=== PATIENT | male | born 1970 | race Caucasian/White ===

== ENCOUNTER 2016-04-24 22:12 | Emergency (ER) | payer OTHER ==
[2016-04-24] MEDS ORDERED: IPRATROPIUM/ALBUTEROL 3 ML DEYVIAL IH ONE (22:33)
[2016-04-24] MEDS ORDERED: IPRATROPIUM/ALBUTEROL 3 ML DEYVIAL ONE (22:33)
--- NOTE | 2016-04-24 22:37 | EDPHY ---
H & P Stated Complaint: SOB, fever, cough- infitrate seen on xray today Time Seen by Provider: 04/24/16 22:21 HPI/ROS: HPI The patient presents with 1 week of cough and fever which started slowly and has gotten progressively worse. His cough is nonproductive and has been moderate in severity. It is associated with a fever as high as 100.5 F. His fever has improved with ibuprofen. He also has had intermittent right-sided mid thoracic pleuritic pain. Tonight, while lying in bed he had shortness of breath and that is what prompted his visit here. 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 He denies any PE risk factors, he has not had any recent travel. He is not aware of any sick contacts at home. He has not had any rhinorrhea or sore throat. He does not have any lower extremity edema. REVIEW OF SYSTEMS Constitutional: No fever, no chills. Eyes: No discharge. ENT: No sore throat. Cardiovascular: + chest pain, no palpitations. Respiratory: No cough, no shortness of breath. Gastrointestinal: No abdominal pain, no vomiting. Genitourinary: No hematuria. Musculoskeletal: No back pain. Skin: No rashes. Neurological: No headache. PMHx: Healthy, no diabetes, no hypertension Soc Hx: Works at an ER doctor at [employer] PHYSICAL General Appearance: Alert, no distress Eyes: Pupils equal and round no pallor or injection ENT, Mouth: Mucous membranes moist Respiratory: There are no retractions, lungs are clear to auscultation Cardiovascular: Regular rate and rhythm Gastrointestinal: Abdomen is soft and non-tender, no masses, bowel sounds normal Neurological: A&O, moves all extremities Skin: Warm and dry, no rashes Musculoskeletal: Neck is supple non tender Extremities: symmetrical, full range of motion Psychiatric: Patient is oriented X 3, there is no agitation Source: Patient Exam Limitations: No limitations - Personal History Current Tetanus Diphtheria and Acellular Pertussis (TDAP): Yes - Medical/Surgical History Hx Asthma: No Hx Chronic Respiratory Disease: No Hx Diabetes: No Hx Cardiac Disease: No Hx Renal Disease: No Hx Cirrhosis: No Hx Alcoholism: No Hx HIV/AIDS: No Hx Splenectomy or Spleen Trauma: No - Social History Smoking Status: Never smoked Constitutional: Initial Vital Signs Temperature (C) 36.7 C 04/24/16 22:15 Heart Rate 104 H 04/24/16 22:15 Respiratory Rate 16 04/24/16 22:15 Blood Pressure 135/96 H 04/24/16 22:15 O2 Sat (%) 94 04/24/16 22:15 O2 Delivery Mode Room Air Allergies/Adverse Reactions: No Known Allergies Allergy (Unverified 04/24/16 22:15) Home Medications: Medication Instructions Recorded levOFLOXACIN [Levofloxacin] 500 mg PO DAILY #10 tablet 04/24/16 Medical Decision Making - Diagnostics Imaging: CT scan with IV contrast of chest demonstrates dense right lower lobe infiltrate , reviewed by radiology. Differential Diagnosis: This is a healthy 45-year-old man who presents with cough, fever, shortness of breath. His symptoms have been ongoing for the last 1 week. Had an abnormal chest x-ray performed earlier today. Differential diagnosis includes pneumonia, influenza, pulmonary embolism, lung mass. In the emergency room, the patient was given a DuoNeb without much improvement in his symptoms. Labs were performed and were unremarkable. Head CT scan demonstrated infiltrate consistent with likely pneumonia. The patient has already started on Levaquin, single dose. I have advised him to continue this. If he is not improved, he should follow up with his primary care provider. No pulmonary embolism was seen on his CT scan. - Data Points Laboratory Results: Laboratory Results 04/24/16 22:40 04/24/16 22:40 04/24/16 04/24/16 04/24/16 22:40 22:40 22:40 WBC 7.90 10^3/uL 10^3/uL (3.80-9.50) RBC 4.68 10^6/uL 10^6/uL (4.40-6.38) Hgb 14.1 g/dL g/dL (13.7-17.5) POC Hgb Hct 40.3 % % (40.0-51.0) POC Hct MCV 86.1 fL fL (81.5-99.8) MCH 30.1 pg pg (27.9-34.1) MCHC 35.0 g/dL g/dL (32.4-36.7) RDW 12.7 % % (11.5-15.2) Plt Count 292 10^3/uL 10^3/uL (150-400) MPV 10.0 fL fL (8.7-11.7) Neut % (Auto) 68.4 % % (39.3-74.2) Lymph % (Auto) 14.4 % L % (15.0-45.0) [place] % (Auto) 11.3 % % (4.5-13.0) Eos % (Auto) 5.1 % % (0.6-7.6) Baso % (Auto) 0.5 % % (0.3-1.7) Nucleat RBC Rel Count 0.0 % % (0.0-0.2) Absolute Neuts (auto) 5.41 10^3/uL 10^3/uL (1.70-6.50) Absolute Lymphs (auto) 1.14 10^3/uL 10^3/uL (1.00-3.00) Absolute Monos (auto) 0.89 10^3/uL H 10^3/uL (0.30-0.80) Absolute Eos (auto) 0.40 10^3/uL 10^3/uL (0.03-0.40) Absolute Basos (auto) 0.04 10^3/uL 10^3/uL (0.02-0.10) Absolute Nucleated RBC 0.00 10^3/uL 10^3/uL (0-0.01) Immature Gran % 0.3 % % (0.0-1.1) Immature Gran # 0.02 10^3/uL 10^3/uL (0.00-0.10) POC Sodium Sodium 143 mEq/L mEq/L (134-144) POC Potassium Potassium 4.0 mEq/L mEq/L (3.5-5.2) POC Chloride Chloride 106 mEq/L mEq/L (97-110) Carbon Dioxide 26 mEq/l mEq/l (22-31) Anion Gap 11 mEq/L mEq/L (8-16) POC BUN BUN 16 mg/dL mg/dL (7-23) Creatinine 0.8 mg/dL mg/dL (0.7-1.3) POC Creatinine Estimated GFR > 60 Glucose 103 mg/dL H mg/dL (70-100) POC Glucose Calcium 9.1 mg/dL mg/dL (8.5-10.4) Total Bilirubin 0.7 mg/dL mg/dL (0.1-1.4) AST 69 IU/L H IU/L (17-59) ALT 89 IU/L H IU/L (21-72) Alkaline Phosphatase 142 IU/L H IU/L (38-126) Total Protein 6.9 g/dL g/dL (6.3-8.2) Albumin 3.7 g/dL g/dL (3.5-5.0) Influenza Typ A,B (DFA) NEGATIVE FOR FLU (NEGATIVE) 04/24/16 22:39 WBC RBC Hgb POC Hgb 13.3 gm/dL L gm/dL (14.5-17.3) Hct POC Hct 39 % L % (42.8-50.6) MCV MCH MCHC RDW Plt Count MPV Neut % (Auto) Lymph % (Auto) [place] % (Auto) Eos % (Auto) Baso % (Auto) Nucleat RBC Rel Count Absolute Neuts (auto) Absolute Lymphs (auto) Absolute Monos (auto) Absolute Eos (auto) Absolute Basos (auto) Absolute Nucleated RBC Immature Gran % Immature Gran # POC Sodium 143 mEq/L mEq/L (134-144) Sodium POC Potassium 3.7 mEq/L mEq/L (3.3-5.0) Potassium POC Chloride 104 mEq/L mEq/L (96-108) Chloride Carbon Dioxide Anion Gap POC BUN 15 mg/dL mg/dL (7-23) BUN Creatinine POC Creatinine 0.8 mg/dL mg/dL (0.8-1.5) Estimated GFR Glucose POC Glucose 104 mg/dL H mg/dL (70-100) Calcium Total Bilirubin AST ALT Alkaline Phosphatase Total Protein Albumin Influenza Typ A,B (DFA) Medications Given: Discontinued Medications Albuterol/Ipratropium (Duoneb) 3 ml IH EDNOW ONE Stop: 04/24/16 22:34 Last Admin: 04/24/16 22:49 Dose: 3 ml Point of Care Test Results: 04/24/16 22:39 POC Sodium 143 POC Potassium 3.7 POC Chloride 104 POC BUN 15 POC Creatinine 0.8 POC Glucose 104 H Departure - Departure Disposition: Home, Routine, Self-Care Clinical Impression: Pneumonia Qualifiers: Pneumonia type: due to unspecified organism Laterality: right Lung location: lower lobe of lung Qualified Code(s): J18.1 - Lobar pneumonia, unspecified organism Condition: Good Instructions: Pneumonia (ED) Referrals: Neda Doss MD [Primary Care Provider] - As per Instructions Prescriptions: levOFLOXACIN [Levofloxacin] 500 mg PO DAILY #10 tablet
[2016-04-24 22:51] LABS: % IMMATURE GRANULYOCYTES 0.3 % (0.0-1.1); ABSOLUTE IMMATURE GRANULOCYTES 0.02 10^3/uL (0.00-0.10); ADD DIFF? NO; ADD MORPH? NO; ADD SCAN? NO; ATYPICAL LYMPHOCYTE FLAG 10 (0-99); FRAGMENT RBC FLAG 0 (0-99); HEMATOCRIT 40.3 % (40.0-51.0); HEMOGLOBIN 14.1 g/dL (13.7-17.5); LEFT SHIFT FLG 0 (0-99); LIPEMIA HEMOLYSIS FLAG 90 (0-99); MEAN CELL HEMOGLOBIN 30.1 pg (27.9-34.1); MEAN CELL VOLUME 86.1 fL (81.5-99.8); PLATELET CLUMPS FLAG 0 (0-99); PLATELET COUNT 292 10^3/uL (150-400); RED BLOOD CELL COUNT 4.68 10^6/uL (4.40-6.38); RED CELL DISTRIBUTION WIDTH 12.7 % (11.5-15.2)
[2016-04-24] MEDS ORDERED: IOPAMIDOL (ISOVUE 370) 100 ML BTL IV ONE (22:54)
[2016-04-24 23:04] LABS: ALANINE AMINOTRANSFERASE 89 IU/L (21-72); ALBUMIN 3.7 g/dL (3.5-5.0); ALKALINE PHOSPHATASE 142 IU/L (38-126); ANION GAP 11 mEq/L (8-16); ASPARTATE AMINOTRANSFERASE 69 IU/L (17-59); BILIRUBIN,TOTAL 0.7 mg/dL (0.1-1.4); CALCIUM 9.1 mg/dL (8.5-10.4); CARBON DIOXIDE 26 mEq/l (22-31); CHLORIDE 106 mEq/L (97-110); CREATININE 0.8 mg/dL (0.7-1.3); GLOMERULAR FILTRATION RATE > 60; GLUCOSE 103 mg/dL (70-100); SODIUM 143 mEq/L (134-144); TOTAL PROTEIN 6.9 g/dL (6.3-8.2)
[2016-04-25 00:17] VITALS: BP 131/71; PULSE 98; RESP 18; TEMP 99.1; O2SAT 96
== END 2016-04-25 00:17 | disposition home or self-care (01) ==
DX: J18.1 Lobar pneumonia, unspecified organism (principal)
CPT/HCPCS: 82947-QW; Q9967

== ENCOUNTER → 2016-05-07 | Outpatient (CLI) | payer OTHER | LOC: FIMAGING 09:35 | PROVIDERS: ATTEND Internal Medicine Infectious Disease | DX: J16.8 Pneumonia due to other specified infectious organisms (principal); B45.0 Pulmonary cryptococcosis; M54.5 Low back pain; J18.8 Other pneumonia, unspecified organism ==

== ENCOUNTER 2016-05-11 10:37 | Inpatient (IN) | payer OTHER ==
[2016-05-11 16:10] LABS: % IMMATURE GRANULYOCYTES 0.3 % (0.0-1.1); ABSOLUTE IMMATURE GRANULOCYTES 0.02 10^3/uL (0.00-0.10); ADD DIFF? NO; ADD MORPH? NO; ADD SCAN? NO; ATYPICAL LYMPHOCYTE FLAG 0 (0-99); FRAGMENT RBC FLAG 0 (0-99); HEMATOCRIT 41.7 % (40.0-51.0); HEMOGLOBIN 14.7 g/dL (13.7-17.5); LEFT SHIFT FLG 0 (0-99); LIPEMIA HEMOLYSIS FLAG 90 (0-99); MEAN CELL HEMOGLOBIN CONCENTR. 35.3 g/dL (32.4-36.7); MEAN CELL VOLUME 82.2 fL (81.5-99.8); MEAN PLATELET VOLUME 10.5 fL (8.7-11.7); PLATELET CLUMPS FLAG 0 (0-99); PLATELET COUNT 372 10^3/uL (150-400); RED BLOOD CELL COUNT 5.07 10^6/uL (4.40-6.38); RED CELL DISTRIBUTION WIDTH 12.5 % (11.5-15.2)
[2016-05-11 16:11] LABS: ALANINE AMINOTRANSFERASE 43 IU/L (21-72); ALBUMIN 4.1 g/dL (3.5-5.0); ALKALINE PHOSPHATASE 96 IU/L (38-126); ANION GAP 13 mEq/L (8-16); ASPARTATE AMINOTRANSFERASE 28 IU/L (17-59); BILIRUBIN,TOTAL 0.6 mg/dL (0.1-1.4); CALCIUM 9.7 mg/dL (8.5-10.4); CARBON DIOXIDE 23 mEq/l (22-31); CHLORIDE 108 mEq/L (97-110); CREATININE 0.8 mg/dL (0.7-1.3); GLOMERULAR FILTRATION RATE > 60; GLUCOSE 108 mg/dL (70-100); POTASSIUM 4.1 mEq/L (3.5-5.2); SODIUM 144 mEq/L (134-144); TOTAL PROTEIN 7.6 g/dL (6.3-8.2)
[2016-05-11] MEDS ORDERED: ACETAMINOPHEN 325 MG TAB PO PRN (16:13)
[2016-05-11] MEDS ORDERED: ONDANSETRON 4 MG/2 ML VIAL IVP PRN (16:13)
[2016-05-11] MEDS ORDERED: ONDANSETRON DISINTEGRATING 4 MG TAB PO PRN (16:13)
[2016-05-11] MEDS ORDERED: BENZONATATE 100 MG CAP PO PRN (17:18)
[2016-05-11] MEDS ORDERED: ZOLPIDEM TARTRATE 5 MG TAB PO PRN (17:18)
[2016-05-11] MEDS ORDERED: NS 1,000 ML IV SCH (17:30)
--- NOTE | 2016-05-11 18:02 | PCMIDPN ---
Assessment/Plan: Cryptococcal PNA, primarily right lower lobe with high burden of disease, reviewed CT scan today, noted several areas with new cavitation. Labs reviewed , mild absolute eosinophilia not uncommon and it an indirect measure of more severe disease. --Discussed case with Dr. Mcdaniel. Will send repeat fungal cultures with BAL and biopsy. No path needed. --ordered liposomal ampho B 4mg/kg IV daily and 5FC 25mg/kg PO q6. Dose calculates to 1750mg Q6h but can only get 500mg tab so elected to dose down to 1500mg --hold fluconazole Subjective: 45 yo male immunocompetent male who was dx with cryptococcal PNA 04/29/16 and was started on fluconazole. Patient slow to improve, although does report improving O2 sats, persistent low-grade fever, severe malaise, and dyspnea on exertion despite approximately 10 days of fluconazole 400mg. Unfortunately, cultures did not get sent when he underwent bronch 04/29/16 therefore know cryptococcus based on positive antigen and full field organisms present on path. 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 Elected to admit today for repeat CT scan, bronch and biopsy and to initiate liposomal amphotericin +5FC. Objective: Vital Signs Temp Pulse Resp BP Pulse Ox 36.6 C 84 16 142/92 H 92 05/11/16 14:15 05/11/16 14:15 05/11/16 14:15 05/11/16 14:15 05/11/16 14:15 Laboratory Results 05/11/16 15:00 05/11/16 15:00 - Physical Exam General Appearance: alert, no apparent distress Respiratory: other (Appears dyspneic with minimal movement) Neuro/Psych: alert, normal mood/affect, oriented x 3 - Time Spent With Patient Time Spent with Patient: greater than 35 minutes (Care coordination with the hospitalist, pulmonary. Review of plans with patient at bedside including repeat imaging, bronchoscopy and advancement to amphotericin) Time Spent with Patient: Greater than 35 minutes spent on this patients care, greater than 50% of time spent counseling, educating, and coordinating care regarding the above mentioned plan. ICD10 Worksheet Patient Problems: Problems Problem Status Onset Cryptococcal pneumonitis Acute [place] (dyspnea on exertion) Acute Fever Acute - ICD10 Problem Qualifiers (1) Cryptococcal pneumonitis (2) Fever Qualifiers: Fever type: due to other condition Encounter type: E Qualified Code(s): R50.81 - Fever presenting with conditions classified elsewhere (3) [place] (dyspnea on exertion)
--- NOTE | 2016-05-11 18:47 | GHP ---
DATE OF ADMISSION: 05/11/2016 CHIEF COMPLAINT: Cryptococcal pneumonia. HISTORY OF PRESENT ILLNESS: The patient is a 45-year-old male without past medical history, who is presenting for treatment of cryptococcal pneumonia. Patient's symptoms originated in 04/16/2016 when he developed fevers, shortness of breath with cough. He felt very toxic for 10 days. He obtained a chest x- ray at work which showed a right lower lobe infiltrate. Thus, presented [facility] ER on 04/24/2016. CT chest at that time showed an extensive right lower lobe consolidation, nodules and mediastinal lymphadenopathy. He was started on Levaquin. Symptoms did not improve and his oxygen sats dropped to the low 80s with increased shortness of breath. He underwent bronchoscopy on 04/28 at [facility] and culture showed significant amount of cryptococcus, negative for malignancy. He was started on fluconazole 400 mg daily on 04/29/2016. He has been taking this since discharge on 04/30/2016. Symptoms have not progressed. He is still feeling very fatigued. He has dyspnea to the point where he can only walk 1 block. He is normally very active doing running, cycling and weights. He has lost 9 pounds since discharge. He also complained of left lumbar pain with radiation down his leg. This has since improved. Denies any bladder or bowel incontinence or weakness. No diarrhea, nausea or vomiting. No travel out of the country recently. REVIEW OF SYSTEMS: A complete 10-point review of systems negative except in HPI. PAST MEDICAL HISTORY: None. PAST SURGICAL HISTORY: 1. A C6-7 fixation. 2. Microdiskectomy L5-S1. 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 Lives in [place] with his , daughter and son. Social alcohol. Denies illicits or tobacco. No exposure to birds. FAMILY HISTORY: Hyperlipidemia. MEDICATIONS: Fluconazole 400 mg daily. ALLERGIES: No known drug allergies. PHYSICAL EXAM: VITAL SIGNS: Temperature 36.6, blood pressure 142/92, heart rate 84, respirations 16, 92% on room air. GENERAL: Patient is sitting up in bed, no acute distress. HEENT: PERRLA. EOMI. Mildly dry mucous membranes. CV: Regular rate and rhythm. No murmurs, gallops, or rubs. LUNGS: Clear to auscultation. ABDOMEN: Soft, nontender, nondistended. Positive bowel sounds. : No suprapubic tenderness. MUSCULOSKELETAL: No tenderness over spine. Lumbar surgical scar healed. 5/5 upper and lower extremity strength. NEURO: 2 through 12 intact. SKIN: Warm, dry, no rash or ulcerations. LABORATORY DATA: WBC 7.4, hemoglobin 14, hematocrit 41, platelets 372. Sodium 144, potassium 4.1, chloride 108, carbon dioxide 23, BUN 19, creatinine 0.8, glucose 108, total bilirubin 0.6, AST 20, ALT 43, total protein 7.6, albumin 4.1. CT chest, personally reviewed by me, showing right lower lobe infiltrates with some cavitation. Review of prior labs shows normal immunoglobulin, HIV testing. Lumbar spine film was performed with no significant bony abnormalities on 2016. ASSESSMENT AND PLAN: 1. Cryptococcal pneumonia: This was demonstrated on past bronchoscopy at [facility] and being followed by Dr. Abrams who is directly admitting patient for amphotericin +5 FC to be initiated tomorrow. Dr. Mcdaniel will consult to perform a bronchoscopy tomorrow with repeat biopsies that will guide long-term treatment. No evidence of neurologic compromise at this time. The back pain has improved. If persistent, would consider MRI. 2. Cough: p.r.n. antitussives. 3. Diet: Regular, n.p.o. after midnight. 4. DVT prophylaxis. Ambulatory. DISPOSITION: Patient warrants inpatient admission given the cryptococcal pneumonia warranting a repeat bronchoscopy and amphotericin plus 5F-C. Monitor for side effects, lab abnormalities closely. /[id number]/MODL MTDD
[2016-05-11] MEDS: guaiFENesin/CODEINE PHOS 10 ML UDCUP PO PRN (22:02)
--- NOTE | 2016-05-11 23:27 | GCON ---
PULMONARY CONSULTATION REASON FOR CONSULTATION: Cryptococcal pneumonia. 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 He became ill about a month ago with progressive cough, fatigue, malaise, and shortness of breath. He eventually had a n x-ray done which showed a right lower zone infiltrate. He was admitted to [facility] a nd had a bronchoscopy there. Findings were consistent with a cryptococcal pneumonia. However, cult ures and sensitivities were lost and/or not sent. The patient was placed on fluconazole. On the fl uconazole, over the last 10 days or so, he has not felt particularly any better. He has had persist ent fevers. He was brought back into the hospital today to arrange repeat bronchoscopy with biopsie s and lavage for culture. PAST MEDICAL HISTORY: Unremarkable. He has been very healthy. He has no previous pulmonary proble ms, no heart disease, no significant recent travel. He was taking no medications prior to this illn ess. He has had some orthopedic procedures. 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 He is a never sm oker, drinks alcohol occasionally. No other inhaled substances. No recent travel. He was in the [facility] area in 2016, but was well after that. FAMILY HISTORY: Noncontributory. ALLERGIES: None known. REVIEW OF SYSTEMS: Negative except as mentioned above. He has no chest pain. He does feel somewha t short of breath. He had no evidence of cryptococcus in his C and S with his previous hospitalizat ion. He has lost 9 pounds over the last 1 month, by his history. Appetite has been decreased. PHYSICAL EXAMINATION: GENERAL: Reveals a pleasant gentleman, in no apparent distress. VITAL SIGNS : Blood pressure is approximately 140/90, heart rate 85, respiratory rate 16. Room air saturations are 92%. He is afebrile. HEENT: Unremarkable for lymphadenopathy or thyromegaly. CHEST: The ch est is relatively clear. There may be a few nonspecific rales at the right base. There is no wheez ing, no rhonchi, no consolidation. HEART: Regular rate and rhythm without significant murmur or ga llops. ABDOMEN: Unremarkable. The rest of the examination within normal limits. LABORATORY DATA: White blood cell count is 7400, hematocrit 41. Platelets are normal. Chemistries are within normal limits. CT scan chest was reviewed. He has right lower lobe infiltrates, some of which are nodular. Overal l, according to radiology, the infiltrates are slightly better compared to April 24. There are some areas of central cavitation. ASSESSMENT: Known cryptococcal pneumonia. The patient has been started on fluconazole and perhaps feels marginally better. CT scan is marginally improved; however, he is not responding rapidly to t he treatment and Infectious Disease is requesting repeat bronchoscopy for cultures and sensitivities . Amphotericin-B is being considered. PLAN/RECOMMENDATIONS: Bronchoscopy will be arranged for tomorrow, probably in the afternoon. Lavag e and biopsies will be sent for culture. Pathology is not being requested. All of the above was discussed at length with the patient, including risks and benefits of bronchosc opy, which he is well aware of. /[id number]/MODL
[2016-05-12 05:30] LABS: ANION GAP 10 mEq/L (8-16); CALCIUM 9.3 mg/dL (8.5-10.4); CARBON DIOXIDE 24 mEq/l (22-31); CHLORIDE 107 mEq/L (97-110); CREATININE 0.8 mg/dL (0.7-1.3); GLOMERULAR FILTRATION RATE > 60; GLUCOSE 92 mg/dL (70-100); POTASSIUM 4.2 mEq/L (3.5-5.2); SODIUM 141 mEq/L (134-144)
[2016-05-12] MEDS: MULTIVITAMINS 1 EACH TAB PO SCH (09:29)
--- NOTE | 2016-05-12 10:22 | PCMIDPN ---
Assessment/Plan: Cryptococcal PNA, primarily right lower lobe with high burden of disease, concern for Cryptococcus Gattii , evolving cavitation noted on CT scan --BAL today, send fungal cultures with BAL and biopsy. No path needed. Alerted microbiology lab --planning liposomal ampho B 4mg/kg IV daily and 5FC 25mg/kg PO q6 to start this afternoon due to concern for cryptococcus Gattii and or high burden of disease --assess coverage for home administration of IV amphotericin and 5 FC --hold off on PICC line until tomorrow when documented tolerance of liposomal amphotericin --continue to hold fluconazole Subjective: Patient felt improved for the 1st time last night. Prior to hospitalization he had drenching night sweats every night but did not have that overnight. Objective: Vital Signs Temp Pulse Resp BP Pulse Ox 36.9 C 84 18 115/95 H 92 05/12/16 07:46 05/12/16 07:46 05/12/16 07:46 05/12/16 07:46 05/12/16 07:46 Laboratory Results 05/11/16 15:00 05/12/16 04:51 05/11/16 05/12/16 05/13/16 05:59 05:59 05:59 Intake Total 200 Balance 200 - Physical Exam General Appearance: alert, no apparent distress Respiratory: lungs clear, No accessory muscle use Cardiac/Chest: regular rate, rhythm, No systolic murmur Skin: No rash Neuro/Psych: alert, normal mood/affect, oriented x 3 - Line/s PIV Lines: erythema (Left forearm slight erythema surrounding P IV) - Time Spent With Patient Time Spent with Patient: greater than 25 minutes (Coordination of care with disability case managertobacco warehouse manager for IV antibiotics as an outpatient, discussion of treatment plan) Time Spent with Patient: Greater than 25 minutes spent on this patients care, greater than 50% of time spent counseling, educating, and coordinating care regarding the above mentioned plan. ICD10 Worksheet Patient Problems: Problems Problem Status Onset Cryptococcal pneumonitis Acute [place] (dyspnea on exertion) Acute Fever Acute - ICD10 Problem Qualifiers (1) Cryptococcal pneumonitis (2) Fever Qualifiers: Fever type: due to other condition Encounter type: E Qualified Code(s): R50.81 - Fever presenting with conditions classified elsewhere (3) [place] (dyspnea on exertion)
[2016-05-12] MEDS ORDERED: fentaNYL 100 MCG/2 ML INJ ONE (14:07)
[2016-05-12] MEDS ORDERED: MIDAZOLAM 2 MG/2 ML VIAL ONE (14:07)
[2016-05-12] MEDS ORDERED: LIDOCAINE 1% 30 ML SDV ONE (14:12)
[2016-05-12] MEDS ORDERED: ALBUTEROL 3 ML DEYVIAL ONE (14:12)
[2016-05-12] MEDS ORDERED: LIDOCAINE 2% JELLY 5 ML TUBE ONE (14:13)
--- NOTE | 2016-05-12 16:08 | HOSPPROG ---
Hospitalist Progress Note Assessment/Plan: #Cryptococcal Pneumonia, primarily RLL -concern for Cryptococcus Gattii -Evolving cavitary lesions on CT -ID following. The patient will start Liposomal Amphoteric B. Ibuprofen for pre- medication -Holding fluconazole -Bronch today for Cultures and sensitivities #Cough: Symptom control. Tessalon and Robitussin. #DVT proph: SCD's S: Had bronch today, tolerated well no cp, sob, or other Objective: Vital Signs Temp Pulse Resp BP Pulse Ox 37.0 C 100 20 123/82 H 96 05/12/16 15:44 05/12/16 15:44 05/12/16 15:44 05/12/16 15:44 05/12/16 15:44 Laboratory Results 05/11/16 15:00 05/12/16 04:51 05/11/16 05/12/16 05/13/16 05:59 05:59 05:59 Intake Total 200 500 Output Total 0 Balance 200 500 - Physical Exam Constitutional: no apparent distress, appears nourished, not in pain Eyes: PERRL Ears, Nose, Mouth, Throat: moist mucous membranes, hearing normal, ears appear normal, no oral mucosal ulcers Cardiovascular: regular rate and rhythym, no murmur, rub, or gallop Respiratory: no respiratory distress, rhonchi (RLL, mild), No reduced air movement, No expiratory wheeze, No inspiratory crackles, No respiratory distress Gastrointestinal: normoactive bowel sounds, soft, non-tender abdomen, no palpable masses Skin: warm, normal color Neurologic: AAOx3 Psychiatric: interacting appropriately, not anxious, not encephalopathic, thought process linear ICD10 Worksheet Patient Problems: Problems Problem Status Onset Cryptococcal pneumonitis Acute [place] (dyspnea on exertion) Acute Fever Acute
[2016-05-12] MEDS: FLUCYTOSINE 500 MG CAP PO SCH (17:14)
[2016-05-12] MEDS ORDERED: IBUPROFEN 800 MG TAB PO ONE (17:30)
[2016-05-12] MEDS ORDERED: FLUCYTOSINE PO SCH (18:00)
[2016-05-12] MEDS: D5W IV SCH (18:01)
[2016-05-12] MEDS: AMPHOTERICIN B LIPOSOME IV SCH (18:01)
--- NOTE | 2016-05-12 20:21 | GPN ---
[f rep st] PROCEDURE NOTE DATE OF PROCEDURE: 05/12/2016 PROCEDURE: Bronchoscopy. INDICATION: Transbronchial biopsies for culture in a patient with known cryptococcal pneumonia. mples are requested by Chana Abrams M.D. DESCRIPTION OF PROCEDURE: The procedure was done in the intensive care unit in room 254, a negative pressure room, and 95 masks were worn throughout. Appropriate time-out was performed. Informed co nsent was obtained from the patient. Topical anesthesia included a small amount of Hurricaine spray and 1% lidocaine, approximately 25 mL. Conscious sedation included 6 mg of Versed and 150 mcg of f entanyl given intravenously. The fiberoptic bronchoscope was advanced via a bite block orally into the larynx. Laryngeal structu res were observed and were normal. The vocal cords moved normally with respiration and cough. The bronchoscope was then advanced into the trachea and in the lower tracheobronchial tree bilaterally. Anatomy was normal bilaterally. There were no secretions. There were no lesions. There was no si gnificant erythema or edema. Bronchoalveolar lavage samples were obtained from the right lower lobe and sent for fungal cultures. Transbronchial biopsies were then obtained from the right lower lobe laterally in the area of the patient's infiltrates that were well seen on fluoroscopy. Multiple bi opsies were obtained. The majority of these were placed in saline and sent for culture. Two biopsi es were sent for pathology, including fungal stains. The patient tolerated the procedure well. There were no complications. Oxygen saturations on suppl emental oxygen and vital signs remained normal throughout the procedure. There was no evidence of a pneumothorax by fluoroscopy at the end of the procedure. A chest x-ray is pending at the time of t his dictation. IMPRESSION: 1. Normal endobronchial anatomy without secretions, inflammation, edema etc. 2. Recent diagnosis of cryptococcal pneumonia. Cultures were lost, and repeat samples for culture are requested by Infectious Disease. /[id number]/MODL
[2016-05-12] MEDS: guaiFENesin/CODEINE PHOS 10 ML UDCUP PO PRN (21:13)
[2016-05-13] MEDS: FLUCYTOSINE 500 MG CAP PO SCH ×3 (00:20→12:10)
[2016-05-13] MEDS ORDERED: ALTEPLASE 2 MG VIAL IVP PRN (08:08)
--- NOTE | 2016-05-13 08:54 | PDIAF ---
- Diagnosis Diagnosis: Cryptococcal PNA Code Status: Full Code - Medication Management Discharge Medications: Medications to Continue on Transfer Fluconazole [Diflucan (*)] 400 mg PO DAILY 05/11/16 [Last Taken 05/11/16] Multivitamins [Multivitamin (*)] 1 each PO DAILY 05/11/16 [Last Taken Unknown] Zolpidem Tartrate [Ambien 5MG (*)] 5 mg PO HS PRN 05/11/16 [Last Taken 05/09/16] Skilled Nursing Antibiotics: Ambisone 288mg IV daily, flucytosine 1500mg PO [id number] Correction Officer Supervisor Antibiotic Stop Date: 05/26/16 Discharge Medications: Refer to the Discharge Home Medication list for PRN reason. PICC Care - Routine: Yes - Orders Services needed: Home Jail Care Face to Face: I certify that this patient was under my care and that I had the required [id number] encounter meeting the encounter requirements on the discharge day. My findings support the fact that the patient is homebound as defined in CMS Chapter 7 Medicare Benefits Manual 30.1.1, The condition of the patient is such that there exists a normal inability to leave home and consequently, leaving home would require a considerable and taxing effort. - Labs/Radiology BMP Date: 05/14/16 (every Tuesday and Tuesday) CBC Date: 05/17/16 (weekly Tuesday) CMP Date: 05/17/16 (weekly Tuesday) Other Lab Name, Date and Time: Magnesium 05/14/16 every Tue/Tue/Tuesday Call or Fax Lab and Imaging Results to: Aliza [phone] - Follow Up Care Current Providers and Referrals: Chana Abrams MD [Primary Care Provider] - follow up in 1 week
--- NOTE | 2016-05-13 08:56 | PCMIDPN ---
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 tolerated Ampho B --BAL yesterday, await cultures --planning liposomal ampho B 4mg/kg IV daily and 5FC 25mg/kg PO q6 to start this afternoon due to concern for cryptococcus Gattii and or high burden of disease --place PICC, hopeful for DC today after dose of Ambisome. interagency completed , Rx 5FC sent to [facility] (probably will be available tomorrow, which is okay) --follow up ID clinic 1 week, 05/20 Subjective: slept well overnight did not note night sweats energy is coming and going Objective: Vital Signs Temp Pulse Resp BP Pulse Ox 36.6 C 78 18 132/81 H 93 05/13/16 07:27 05/13/16 07:27 05/13/16 07:27 05/13/16 07:27 05/13/16 07:27 Microbiology 05/12/16 15:00 PAWEL Preparation - Final Other - Other 05/12/16 15:00 PAWEL Preparation - Final Other - Other Laboratory Results 05/11/16 15:00 05/12/16 04:51 05/12/16 05/13/16 05/14/16 05:59 05:59 05:59 Intake Total 200 1050 Output Total 0 Balance 200 1050 - Physical Exam General Appearance: alert, no apparent distress EENT: No scleral icterus Respiratory: lungs clear, No accessory muscle use Skin: No rash Neuro/Psych: alert, normal mood/affect, oriented x 3 - Time Spent With Patient Time Spent with Patient: greater than 35 minutes (coordination of care with Dr. Mcdaniel; transition to outpatient, education about treatment plan) Time Spent with Patient: Greater than 35 minutes spent on this patients care, greater than 50% of time spent counseling, educating, and coordinating care regarding the above mentioned plan. - Pending Discharge Pending Discharge Within 24 Hours: Yes Pending Discharge Date: 05/14/16 Pending Discharge Time: 11:00 ICD10 Worksheet Patient Problems: Problems Problem Status Onset Cryptococcal pneumonitis Acute [place] (dyspnea on exertion) Acute Fever Acute - ICD10 Problem Qualifiers (1) Cryptococcal pneumonitis (2) Fever Qualifiers: Fever type: due to other condition Encounter type: E Qualified Code(s): R50.81 - Fever presenting with conditions classified elsewhere (3) [place] (dyspnea on exertion)
[2016-05-13] MEDS ORDERED: IBUPROFEN 800 MG TAB PO ONE (09:30)
[2016-05-13 10:13] LABS: ALANINE AMINOTRANSFERASE 41 IU/L (21-72); ALBUMIN 4.3 g/dL (3.5-5.0); ALKALINE PHOSPHATASE 95 IU/L (38-126); ANION GAP 13 mEq/L (8-16); ASPARTATE AMINOTRANSFERASE 28 IU/L (17-59); BILIRUBIN,TOTAL 0.8 mg/dL (0.1-1.4); CALCIUM 9.9 mg/dL (8.5-10.4); CARBON DIOXIDE 27 mEq/l (22-31); CHLORIDE 104 mEq/L (97-110); CREATININE 0.8 mg/dL (0.7-1.3); GLOMERULAR FILTRATION RATE > 60; GLUCOSE 106 mg/dL (70-100); MAGNESIUM 2.1 mg/dL (1.6-2.3); POTASSIUM 4.6 mEq/L (3.5-5.2); SODIUM 144 mEq/L (134-144); TOTAL PROTEIN 7.7 g/dL (6.3-8.2)
[2016-05-13] MEDS: MULTIVITAMINS 1 EACH TAB PO SCH (10:17)
[2016-05-13] MEDS: D5W IV SCH (10:20)
[2016-05-13] MEDS: AMPHOTERICIN B LIPOSOME IV SCH (10:20)
[2016-05-13 11:09] VITALS: RESP 16; TEMP 98.2
--- NOTE | 2016-05-13 11:16 | HOSPPROG ---
Hospitalist Progress Note Assessment/Plan: #Cryptococcal Pneumonia, primarily RLL with high burden of disease -concern for Cryptococcus Gattii -Evolving cavitary lesions on CT -ID following. The patient was started Liposomal Amphoteric B. on 05/12. He tolerated well. Planning liposomal ampho B 4mg/kg IV daily and 5FC 25mg/kg PO q6 to start this afternoon. -Right PICC line placed -If tolerates well can likely discharge this afternoon. Otherwise keep overnight -Ibuprofen for pre-medication -Holding fluconazole -Bronch 05/12 for Cultures and sensitivities -Will need f/u with ID. The patient and ID to schedule #Cough: Symptom control. Tessalon and Robitussin. #DVT proph: SCD's S: No complaints. No CP or SOB Objective: Vital Signs Temp Pulse Resp BP Pulse Ox 36.8 C 81 16 128/84 H 95 05/13/16 11:08 05/13/16 11:08 05/13/16 11:08 05/13/16 11:08 05/13/16 11:08 Microbiology 05/12/16 15:00 PAWEL Preparation - Final Other - Other 05/12/16 15:00 PAWEL Preparation - Final Other - Other Laboratory Results 05/11/16 15:00 05/13/16 09:40 05/12/16 05/13/16 05/14/16 05:59 05:59 05:59 Intake Total 200 1050 Output Total 0 Balance 200 1050 - Physical Exam Constitutional: no apparent distress, appears nourished Eyes: PERRL, anicteric sclera, EOMI Ears, Nose, Mouth, Throat: moist mucous membranes, hearing normal, ears appear normal, no oral mucosal ulcers Cardiovascular: regular rate and rhythym, no murmur, rub, or gallop Respiratory: no respiratory distress, no rales or rhonchi, clear to auscultation Gastrointestinal: normoactive bowel sounds, soft, non-tender abdomen, no palpable masses Genitourinary: no bladder fullness Skin: warm, normal color Musculoskeletal: No generalized weakness Neurologic: AAOx3 Psychiatric: interacting appropriately, not anxious, not encephalopathic, thought process linear ICD10 Worksheet Patient Problems: Problems Problem Status Onset Cryptococcal pneumonitis Acute [place] (dyspnea on exertion) Acute Fever Acute
--- NOTE | 2016-05-13 14:34 | PDDCSUM ---
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 He was started on Amphotericin B with good improvement of his sx's. He tolerated this treatment well. Please see below for details per problem. As he is improving and has tolerated this regimen, he will be discharged per below. He has been cleared for discharge by ID. #Cryptococcal Pneumonia, primarily RLL with high burden of disease -concern for Cryptococcus Gattii -Evolving cavitary lesions on CT -ID following. The patient was started Liposomal Amphotericin B. on 05/12. He tolerated well. Planning liposomal ampho B 4mg/kg IV daily and 5FC 25mg/kg PO q6 to start this afternoon. -Right PICC line placed -Ibuprofen for pre-medication -Holding fluconazole -Bronch 05/12 for Cultures and sensitivities -Will f/u with ID. The patient and ID to schedule #Cough: Symptom control. Tessalon and Robitussin. #DVT proph: SCD's Discharge Exam: VSS NAD AAOX3 PERRLA, EOMI, MMM, OROPHARYNX CLEAR NO JVD, SUPPLE RRR, NO M/R/G CTA B S/NT/ND NO EDEMA MOOD APPROPRIATE MEDS: PER ABOVE F/U: PER ABOVE TOTAL CARE TIME ARRANGING DISCHARGE IS 36 MINUTES
[2016-05-13 16:25] VITALS: BP 124/89; PULSE 84; O2SAT 93
== END 2016-05-13 16:53 | disposition home health service (06) | DRG 853 ==
LOC: F2W 14:23 → OBSVTOIN 16:15 → F3E 05-12 15:27
PROVIDERS: ADMIT Internal Medicine; ATTEND Family Medicine
DX: B45.0 Pulmonary cryptococcosis (principal); J17 Pneumonia in diseases classified elsewhere; R05 Cough
CPT/HCPCS: C1751; J0171; J0289; J1200; J2250; J3010

== ENCOUNTER → 2017-01-11 | Outpatient (CLI) | payer BC | LOC: FIMAGING 10:27 | PROVIDERS: ATTEND Internal Medicine Infectious Disease | DX: B45.0 Pulmonary cryptococcosis (principal) ==

== ENCOUNTER → 2017-01-21 | Outpatient (CLI) | payer BC ==
[~2017-01-21] MED LIST: IOPAMIDOL (ISOVUE-300) 100 ML BTL ONE
== END ==
LOC: CIMAGING 10:14
DX: M79.641 Pain in right hand (principal); R93.8 Abnormal findings on diagnostic imaging of other specified body structures; B45.0 Pulmonary cryptococcosis
CPT/HCPCS: 71260-PO; 73130-PO; Q9967

== ENCOUNTER → 2017-02-09 | Outpatient (CLI) | payer BC | LOC: BMCIMAGING 18:46 | PROVIDERS: ATTEND Emergency Medicine | DX: J98.4 Other disorders of lung (principal) ==

== ENCOUNTER 2017-02-13 21:55 | Emergency (ER) | payer BC ==
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
[2017-02-13] MEDS ORDERED: NS 1,000 ML IV ONE (22:28)
--- NOTE | 2017-02-13 22:36 | CPEKG ---
Heart Rate: 80 RR Interval: 750 P-R Interval: 180 QRSD Interval: 94 QT Interval: 368 QTC Interval: 425 P [place]: 48 QRS [place]: 77 T Wave [place]: 55 EKG Severity - NORMAL ECG - EKG Impression: SINUS RHYTHM Electronically Signed By: Jayy Salinas 14-Feb-2017 06:37:48
[2017-02-13] MEDS ORDERED: IOPAMIDOL (ISOVUE 370) 100 ML BTL IV ONE (23:01)
[2017-02-13 23:03] LABS: % IMMATURE GRANULYOCYTES 0.2 % (0.0-1.1); ABSOLUTE IMMATURE GRANULOCYTES 0.01 10^3/uL (0.00-0.10); ADD DIFF? NO; ADD MORPH? NO; ADD SCAN? NO; ATYPICAL LYMPHOCYTE FLAG 10 (0-99); FRAGMENT RBC FLAG 0 (0-99); HEMATOCRIT 43.6 % (40.0-51.0); HEMOGLOBIN 15.7 g/dL (13.7-17.5); LEFT SHIFT FLG 0 (0-99); LIPEMIA HEMOLYSIS FLAG 90 (0-99); MEAN CELL HEMOGLOBIN 30.7 pg (27.9-34.1); MEAN CELL VOLUME 85.2 fL (81.5-99.8); MEAN PLATELET VOLUME 10.2 fL (8.7-11.7); PLATELET CLUMPS FLAG 0 (0-99); PLATELET COUNT 221 10^3/uL (150-400); RED BLOOD CELL COUNT 5.12 10^6/uL (4.40-6.38); RED CELL DISTRIBUTION WIDTH 13.2 % (11.5-15.2)
[2017-02-13 23:12] LABS: APTT 27.8 SEC (23.0-38.0); INR 0.93 (0.83-1.16); PROTIME(PATIENT) 12.7 SEC (12.0-15.0)
[2017-02-13 23:16] LABS: ALANINE AMINOTRANSFERASE 76 IU/L (21-72); ALBUMIN 4.3 g/dL (3.5-5.0); ALKALINE PHOSPHATASE 88 IU/L (38-126); ANION GAP 14 mEq/L (8-16); ASPARTATE AMINOTRANSFERASE 43 IU/L (17-59); BILIRUBIN,TOTAL 0.5 mg/dL (0.1-1.4); BILIRUBIN-CONJUGATED 0.2 mg/dL (0.0-0.5); BILIRUBIN-UNCONJUGATED 0.3 mg/dL (0.0-1.1); CALCIUM 9.7 mg/dL (8.5-10.4); CARBON DIOXIDE 26 mEq/l (22-31); CHLORIDE 105 mEq/L (97-110); CREATININE 0.8 mg/dL (0.7-1.3); GLOMERULAR FILTRATION RATE > 60; GLUCOSE 109 mg/dL (70-100); MAGNESIUM 2.2 mg/dL (1.6-2.3); POTASSIUM 4.1 mEq/L (3.5-5.2); SODIUM 145 mEq/L (134-144); TOTAL PROTEIN 6.9 g/dL (6.3-8.2)
[2017-02-13 23:28] LABS: CREATINE KINASE-MB FRACTION 1.12 ng/mL (0.00-3.19); TROPONIN I < 0.012 ng/mL (0.000-0.034)
[2017-02-14 00:13] VITALS: RESP 16; TEMP 97.9; O2SAT 95
[2017-02-14 01:02] VITALS: BP 123/83; PULSE 72
== END 2017-02-14 01:00 | disposition home or self-care (01) ==
PROC: 3E0337Z Introduction of Electrolytic and Water Balance Substance into Peripheral Vein, Percutaneous Approach (ICD-10-PCS; principal; 2017-02-13)
DX: R09.02 Hypoxemia (principal); J18.1 Lobar pneumonia, unspecified organism; E86.9 Volume depletion, unspecified; Z79.82 Long term (current) use of aspirin
CPT/HCPCS: Q9967

== ENCOUNTER → 2017-07-10 | Outpatient (CLI) | payer BC | LOC: FIMAGING 11:35 | PROVIDERS: ATTEND Family Medicine | DX: S22.41XA Multiple fractures of ribs, right side, initial encounter for closed fracture (principal); W19.XXXA Unspecified fall, initial encounter | CPT/HCPCS: Q9967 ==

== ENCOUNTER → 2018-04-17 | Outpatient (CLI) | payer OTHER | LOC: FIMAGING 07:41 | PROVIDERS: ATTEND Internal Medicine | DX: R91.8 Other nonspecific abnormal finding of lung field (principal); J98.4 Other disorders of lung ==